=== PATIENT | female | born 1960 ===

== ENCOUNTER 2024-11-08 09:45 | Inpatient (IN) | payer OTHER ==
[~2024-11-08] VITALS: Ht 61 cm; Wt 78.0 kg
[2024-12-05 07:26] VITALS: BP 151/83
[2024-12-05] MEDS ORDERED: COZAAR100 MG PO (07:30)
[2024-12-05] MEDS ORDERED: FOLIC ACID0.8 M1 PO (07:32)
[2024-12-08] MEDS ORDERED: CLINDAMYCIN PHOSPHATE 150 MG/ML (600mg) ONE (14:05)
[2024-12-08] MEDS ORDERED: POVIDONE-IODINE 118 ML BOTT TOP ONE (15:07)
[2024-12-08] MEDS ORDERED: THROMBIN,HU/FIBRINOGEN/CALCIUM 10 ML SYRINGE TOP ONE (16:28)
[2024-12-08] MEDS ORDERED: MORPHINE SULFATE 4 MG/ML CARTRIDGE IV PRN (16:30)
[2024-12-08] MEDS ORDERED: RINGERS SOLUTION,LACTATED 1,000 ML IV SCH (16:30)
[2024-12-08] MEDS ORDERED: KETOROLAC TROMETHAMINE 30 MG VIAL IV ONE (16:30)
[2024-12-08] MEDS ORDERED: VISTASEAL DUAL APPICATOR 1 EACH APPL TOP ONE (16:52)
[2024-12-08] MEDS ORDERED: SIMETHICONE 125 MG CAPSULE PO SCH (17:00)
[2024-12-08] MEDS ORDERED: METOCLOPRAMIDE HCL 5 MG/ML VIAL IV SCH (17:00)
[2024-12-08] MEDS ORDERED: CLINDAMYCIN PHOSPHATE 150 MG/ML (600mg) IV SCH (17:00)
[2024-12-08] MEDS ORDERED: MORPHINE SULFATE 4 MG/ML VIAL IV ONE ×2 (17:30→18:45)
[2024-12-08] MEDS ORDERED: ONDANSETRON HCL 2 MG/ML VIAL ONE (17:48)
[2024-12-08] MEDS ORDERED: METOCLOPRAMIDE HCL 5 MG/ML VIAL ONE (18:00)
[2024-12-08] MEDS ORDERED: KETOROLAC TROMETHAMINE 30 MG VIAL ONE (18:00)
[2024-12-08] MEDS ORDERED: ACETAMINOPHEN 500 MG GEL..CAP PO SCH (18:00)
[2024-12-08 19:00] VITALS: BP 143/67; O2SAT 95
[2024-12-08 19:12] LABS: HEMATOCRIT 36.3 % (36.0-45.00); HEMOGLOBIN 11.9 g/dL (12.0-15.00); MEAN CELL VOLUME 82.6 fL (80.00-100.00); MEAN CORPUSCULAR HEMOGLOBIN 27.2 pg (27.00-32.0); MEAN CORPUSCULAR HGB CONC 32.9 g/dl (32.0-36.0); PLATELET COUNT 242 K/uL (150-450); RED BLOOD COUNT 4.39 M/uL (4.00-6.00); RED CELL DISTRIBUTION WIDTH 14.1 % (11.5-14.5)
[2024-12-08 19:26] LABS: ALBUMIN 3.6 gm/dL (3.4-5.0); CALCIUM 8.8 mg/dL (8.5-10.1); CREATININE SERUM 0.6 mg/dL (0.55-1.02); GFR 101.3; PHOSPHOROUS 3.3 mg/dL (2.5-4.9); POTASSIUM 4.05 mEq/L (3.5-5.1)
[2024-12-08] MEDS ORDERED: CELECOXIB 200 MG CAPSULE PO SCH (21:00)
[2024-12-08] MEDS ORDERED: DOCUSATE SODIUM 100MG CAP PO SCH (21:00)
[2024-12-08] MEDS ORDERED: FAMOTIDINE/PF 20 MG/2 ML VIAL IV PUSH SCH (21:00)
[2024-12-08] MEDS ORDERED: GABAPENTIN 300 MG CAPSULE PO SCH (21:00)
[2024-12-09] VITALS: BP 142/60; O2SAT 96
[2024-12-09 08:00] VITALS: BP 148/62; O2SAT 96
[2024-12-09] MEDS ORDERED: ENOXAPARIN SODIUM 40 MG/0.4 ML SYRINGE SUBCUTANEO SCH (09:00)
== END 2024-12-09 14:32 | disposition home or self-care (01) | DRG 741 ==
LOC: SURH 12-08 05:44 → O/R 12-08 05:44 → SURH 12-08 09:45
PROVIDERS: Obstetrics & Gynecology; ADMIT Obstetrics & Gynecology Gynecologic Oncology; ATTEND Obstetrics & Gynecology Gynecologic Oncology
PROC: 07BC4ZZ Excision of Pelvis Lymphatic, Percutaneous Endoscopic Approach (ICD-10-PCS; 2024-12-08)
PROC: 0UT24ZZ Resection of Bilateral Ovaries, Percutaneous Endoscopic Approach (ICD-10-PCS; 2024-12-08)
PROC: 0UT74ZZ Resection of Bilateral Fallopian Tubes, Percutaneous Endoscopic Approach (ICD-10-PCS; 2024-12-08)
PROC: 0UT94ZZ Resection of Uterus, Percutaneous Endoscopic Approach (ICD-10-PCS; principal; 2024-12-08 19:15)
DX: C54.1 Malignant neoplasm of endometrium (principal)